=== PATIENT | female | born 1990 | race Two or more races ===

== ENCOUNTER 2019-03-30 11:17 | Emergency (ER) | payer OTHER ==
[2019-03-30 11:26] VITALS: BP 110/50
[2019-03-30] MEDS ORDERED: HYOSCYAMINE 0.125 MG TAB.RAPDIS PO ONE (11:30)
[2019-03-30] MEDS ORDERED: PROCHLORPERAZINE 10 MG/2 ML VIAL. IV ONE (11:30)
[2019-03-30] MEDS ORDERED: KETOROLAC 30 MG/ML VIAL. IV ONE (11:30)
--- NOTE | 2019-03-30 11:49 | PHYS DOC ---
Past History Past Medical History: No Pertinent History Past Surgical History: Appendectomy, Tonsillectomy Smoking: Non-smoker Alcohol Use: None Drug Use: None Adult General Chief Complaint Chief Complaint: MULTIPLE COMPLAINTS HPI HPI Patient is a 28-year-old female with chest, back, and abdominal pain for the past week to 2 weeks. She has been throwing up. Diarrhea as well. No recent travel or trauma. 5 days ago she had a fever of 102. She has taken no medicine for any of these complaints. She has not seen a primary care physician. No blood in the emesis. She reports black stools. No weakness. No PE risk factors. Nothing makes the chest discomfort worse. No worsening with exertion. No radiation.[] Review of Systems Review of Systems Constitutional: Denies fever or chills [] Eyes: Denies change in visual acuity, redness, or eye pain [] HENT: Denies nasal congestion or sore throat [] Respiratory: Denies cough or shortness of breath [] Cardiovascular: No additional information not addressed in HPI [] GI: Denies abdominal pain, nausea, vomiting, bloody stools or diarrhea [] : Denies dysuria or hematuria [] Musculoskeletal: Denies back pain or joint pain [] Integument: Denies rash or skin lesions [] Neurologic: Denies headache, focal weakness or sensory changes [] Endocrine: Denies polyuria or polydipsia [] All other systems were reviewed and found to be within normal limits, except as documented in this note. Physical Exam Physical Exam Constitutional: Well developed, well nourished, no acute distress, non-toxic appearance. [] HENT: Normocephalic, atraumatic, bilateral external ears normal, oropharynx moist, no oral exudates, nose normal. [] Eyes: PERRLA, EOMI, conjunctiva normal, no discharge. [] Neck: Normal range of motion, no tenderness, supple, no stridor. [] Cardiovascular:Heart rate regular rhythm, no murmur [] Lungs & Thorax: Bilateral breath sounds clear to auscultation [] Abdomen: Bowel sounds normal, soft, no tenderness, no masses, no pulsatile masses. [] Skin: Warm, dry, no erythema, no rash. [] Back: No tenderness, no CVA tenderness. [] Extremities: No tenderness, no cyanosis, no clubbing, ROM intact, no edema. [] Neurologic: Alert and oriented X 3, normal motor function, normal sensory function, no focal deficits noted. [] Psychologic: Affect normal, judgement normal, mood normal. [] Current Patient Data Vital Signs Vital Signs Date Time Temp Pulse Resp B/P (MAP) Pulse Ox O2 Delivery O2 Flow Rate FiO2 03/30/19 11:26 98.1 72 18 97 Room Air EKG EKG EKG shows a sinus rhythm at 74 bpm, PVCs are present. Normal axis, QTC 460 ms, no ST elevations. Interpreted by me at 1133.[] Radiology/Procedures Radiology/Procedures PROCEDURE: ACUTE ABDOMEN SERIES Acute abdominal series to include a PA chest radiograph 03/30/2019 Clinical History: Difficulty breathing with nausea and vomiting. Periumbilical pain. A PA digital radiograph of the chest was obtained. Supine and erect AP digital radiographs of the abdomen/pelvis were obtained. No previous studies are available for comparison. The cardiac and mediastinal silhouettes are within normal limits in size and configuration. No pulmonary infiltrate is seen. No pleural effusion or pneumothorax is noted. Surgical clips are seen involving the right mid abdomen. An IUD overlies the pelvis. The abdominal bowel gas pattern is nonobstructive. There is no evidence of free air. An 1.3 cm calcific density overlies the right upper quadrant of the abdomen which may represent an calcified gallstone. The osseous structures are grossly intact. Impression: 1. Question cholelithiasis. 2. Nonobstructive bowel gas pattern.[] Course & Med Decision Making Course & Med Decision Making Pertinent Labs and Imaging studies reviewed. (See chart for details) ED course: Patient arrived, was placed in bed, and tolerated exam well. She was transported to and from radiology with out any complications. She was given IV fluids, antiemetics, and medicine for pain. She was oral intake tolerant while in the emergency department. Findings and plan were discussed with the patient voiced understanding. All questions were answered. She was discharged in improved condition. Medical decision making: There is no evidence of oral intake intolerance, no pneumonia, no pneumothorax, no evidence of pulmonary embolism, no evidence of acute coronary syndrome, nor congestive heart failure. No evidence of GI bleed, nor significant electrolyte abnormality. No evidence of or ectopic [] Dragon Disclaimer Dragon Disclaimer This electronic medical record was generated, in whole or in part, using a voice recognition dictation system. Departure Departure: Impression: Primary Impression: Chest pain Additional Impression: Nausea vomiting and diarrhea Disposition: 01 HOME, SELF-CARE Condition: IMPROVED Referrals: PCP,JOHN (PCP) Patient Instructions: Chest Pain (Nonspecific), Diet for Diarrhea, Adult, Nausea and Vomiting Additional Instructions: Drink plenty of fluids, frequent small sips. No fatty foods, no milk, and no pepper for the next 48 hours. For the next 48 hours eat a diet rich in carbohydrates with foods such as bananas, rice, applesauce, and toast. Follow-up with your regular doctor in 2 days. If you do not have a regular doctor list of local clinics will be provided for you. Return to the ER if unable to tolerate liquids, blood in your stool or emesis, or any other concerns. Scripts Ondansetron Hcl (ZOFRAN) 4 Mg Tablet 1 TAB PO Q6HRS for nausea or vomiting, #20 TAB Prov: JAGDEEP SANTILLAN DO 03/30/19 Meloxicam (MELOXICAM) 7.5 Mg Tablet 7.5 MG PO DAILY for PAIN, #20 TAB Prov: JAGDEEP SANTILLAN DO 03/30/19 Hyoscyamine Sulfate (LEVSIN) 0.125 Mg Tablet 0.125 MG PO QID for abdominal pain/cramping, #30 TAB Prov: JAGDEEP SANTILLAN DO 03/30/19 Problem Qualifiers Primary Impression: Chest pain Chest pain type: unspecified Qualified Codes: R07.9 - Chest pain, unspecified JAGDEEP SANTILLAN DO Mar 30, 2019 11:48
[2019-03-30 12:10] LABS: BASO % 1 % (0-3); EOS % 1 % (0-3); HEMOGLOBIN 11.4 g/dL (12.0-15.5); LYMPH # 1.5 x10^3/uL (1.0-4.8); LYMPH % 23 % (24-48); MEAN CORPUSCULAR HEMOGLOBIN 26 pg (25-35); MEAN CORPUSCULAR HGB CONC 33 g/dL (31-37); MEAN CORPUSCULAR VOLUME 81 fL (79-100); MONO # 0.4 x10^3/uL (0.0-1.1); MONO % 6 % (0-9); NEUT # 4.5 x10^3uL (1.8-7.7); NEUT % 70 % (31-73); PLATELET COUNT 378 x10^3/uL (140-400); RED BLOOD COUNT 4.35 x10^6/uL (3.50-5.40); RED CELL DISTRIBUTION WIDTH 14.2 % (11.5-14.5); WHITE BLOOD COUNT 6.4 x10^3/uL (4.0-11.0)
[2019-03-30 12:17] LABS: ALBUMIN 3.8 g/dL (3.4-5.0); ALBUMIN/GLOBULIN RATIO 1.1 (1.0-1.7); CALCIUM 9.2 mg/dL (8.5-10.1); CREATININE 0.6 mg/dL (0.6-1.0); POTASSIUM 3.6 mmol/L (3.5-5.1); TOTAL BILIRUBIN 0.5 mg/dL (0.2-1.0); TOTAL PROTEIN 7.4 g/dL (6.4-8.2)
[2019-03-30 12:49] LABS: BACTERIA,URINE MOD /HPF (0-FEW); BILIRUBIN,URINE NEG (NEG); CLARITY,URINE HAZY; COLOR,URINE AMBER; GLUCOSE,URINE NEG (NEG); NITRITE,URINE NEG (NEG); SQUAMOUS EPITHELIAL CELL,UR FEW /LPF; UROBILINOGEN,URINE 4 mg/dL (0.2 mg/dL)
--- NOTE | 2019-03-30 12:51 | RAD ---
Acute abdominal series to include a PA chest radiograph 03/30/2019 Clinical History: Difficulty breathing with nausea and vomiting. Periumbilical pain. A PA digital radiograph of the chest was obtained. Supine and erect AP digital radiographs of the abdomen/pelvis were obtained. No previous studies are available for comparison. The cardiac and mediastinal silhouettes are within normal limits in size and configuration. No pulmonary infiltrate is seen. No pleural effusion or pneumothorax is noted. Surgical clips are seen involving the right mid abdomen. An IUD overlies the pelvis. The abdominal bowel gas pattern is nonobstructive. There is no evidence of free air. An 1.3 cm calcific density overlies the right upper quadrant of the abdomen which may represent an calcified gallstone. The osseous structures are grossly intact. Impression: 1. Question cholelithiasis. 2. Nonobstructive bowel gas pattern. Electronically signed by: Husam Angel MD (03/30/2019 12:48 PM) [facility]
[2019-03-30 13:24] LABS: U PREG PATIENT NEGATIVE (NEG)
[2019-03-30] MEDS ORDERED: ONDA4TAB7 PO (13:33)
[2019-03-30] MEDS ORDERED: HYOS0.1264 PO (13:33)
[2019-03-30] MEDS ORDERED: MELO7.5T29 PO (13:33)
--- NOTE | 2019-03-30 13:43 | EKG ---
[address] [address] Test Date: 2019-03-30 Test Time: 11:30:10 Pat Name: LYRIC ARIAS Department: Room: Gender: F Em Physician: DAHIANA : 1990 Requested By: JAGDEEP SANTILLAN Order Number: [id number] Reading MD: Sean Meza MD Measurements Intervals [place] Rate: 74 P: 51 UT: 176 QRS: 77 QRSD: 94 T: -34 QT: 414 QTc: 460 Interpretive Statements SINUS RHYTHM VENTRICULAR PREMATURE COMPLEX(ES) Electronically Signed On 04-09-2019 9:45:42 CDT by Sean Meza MD
== END 2019-03-30 13:36 | disposition home or self-care (01) ==
LOC: ER 11:17
DX: R07.9 Chest pain, unspecified (principal); R10.33 Periumbilical pain; R11.2 Nausea with vomiting, unspecified; R19.7 Diarrhea, unspecified; Z90.49 Acquired absence of other specified parts of digestive tract
CPT/HCPCS: 36415; 74022; 80053; 81001; 81025; 83690; 84484; 85025; 85379; 87086; 93005; 96374; 96375; 99285; J0780; J1885

== ENCOUNTER 2020-06-28 14:07 | Emergency (ER) | payer OTHER ==
[~2020-06-28] VITALS: Ht 167.6 cm; Wt 86.4 kg
[~2020-06-28 14:07] MED LIST: HYOS0.1264 PO; MELO7.5T29 PO; ONDA4TAB7 PO
[2020-06-28 15:14] LABS: BACTERIA,URINE FEW /HPF (0-FEW); BILIRUBIN,URINE NEG (NEG); CLARITY,URINE CLEAR; COLOR,URINE YELLOW; GLUCOSE,URINE NEG (NEG); NITRITE,URINE NEG (NEG); RBC,URINE >40 /HPF (0-2); SQUAMOUS EPITHELIAL CELL,UR OCC /LPF; UROBILINOGEN,URINE 0.2 mg/dL (0.2 mg/dL); WBC,URINE OCC /HPF (0-4)
[2020-06-28 16:38] VITALS: BP 104/64
--- NOTE | 2020-06-28 16:49 | PHYS DOC ---
Past History Past Medical History: Anxiety Past Surgical History: Appendectomy, Tonsillectomy Additional Past Surgical Histo: appendectomyx2 Smoking: Non-smoker Alcohol Use: None Drug Use: None Adult General Chief Complaint Chief Complaint: VAGINAL BLEEDING HPI HPI Patient is a 29-year-old female reports vaginal bleeding after being 6 weeks . Patient states this is her second and she has 1 living child at home. Patient states that she took 4 home test last week and they were all positive. Patient states that she started noticing some light bleeding last week and eventually turned to normal menstrual type bleeding this week. Patient states that she is having cramping and vaginal bleeding consistent with her normal menstruation. Patient denies any nausea, vomiting, diarrhea, chest pains, shortness of breath. Patient denies any loss of bowel or bladder. Patient denies any urinary infection type signs and symptoms. Patient denies any STI concerns. Patient states she has no known drug allergies, had an appendectomy in 2008 and then again in 2011 as she was told she had 2 appendixes. Patient states she had a TNA in 2011. Patient takes Lexapro 25 mg for anxiety. Patient denies any other physical elements or physical complaints. Review of Systems Review of Systems 14 body systems of review of systems have been reviewed. See HPI for pertinent positives and negative responses, otherwise all other systems are negative, nonpertinent or noncontributory. Allergies Allergies Allergies Coded Allergies Type Severity Reaction Last Updated Verified No Known Drug Allergies 03/30/19 No Physical Exam Physical Exam Constitutional: Well developed, well nourished, no acute distress, non-toxic appearance. HENT: Normocephalic, atraumatic, bilateral external ears normal, oropharynx moist, no oral exudates, nose normal. Eyes: PERRLA, EOMI, conjunctiva normal, no discharge. Neck: Normal range of motion, no tenderness, supple, no stridor. Cardiovascular:Heart rate regular rhythm, no murmur Lungs & Thorax: Bilateral breath sounds clear to auscultation Abdomen: Bowel sounds normal, soft, no tenderness, no masses, no pulsatile masses. Skin: Warm, dry, no erythema, no rash. Back: No tenderness, no CVA tenderness. Extremities: No tenderness, no cyanosis, no clubbing, ROM intact, no edema. Neurologic: Alert and oriented X 3, normal motor function, normal sensory function, no focal deficits noted. Psychologic: Affect normal, judgement normal, mood normal. Current Patient Data Vital Signs Vital Signs Date Time Temp Pulse Resp B/P (MAP) Pulse Ox O2 Delivery O2 Flow Rate FiO2 06/28/20 16:40 97.8 06/28/20 16:38 70 16 104/64 (77) 98 06/28/20 14:30 Room Air Lab Results Laboratory Tests Test 06/28/20 14:18 06/28/20 14:30 06/28/20 15:05 Urine Collection Type Unknown Urine Color Yellow Urine Clarity Clear Urine pH 6.5 Urine Specific [place] 1.025 Urine Protein Neg (NEG-TRACE) Urine Glucose (UA) Neg mg/dL (NEG) Urine Ketones (Stick) Neg mg/dL (NEG) Urine Blood Large (NEG) Urine Nitrite Neg (NEG) Urine Bilirubin Neg (NEG) Urine Urobilinogen Dipstick 0.2 mg/dL (0.2 mg/dL) Urine Leukocyte Esterase Neg (NEG) Urine RBC >40 /HPF (0-2) Urine WBC Occ /HPF (0-4) Urine Squamous Epithelial Cells Occ /LPF Urine Bacteria Few /HPF (0-FEW) POC Urine HCG, Qualitative hcg negative (Negative) Maternal Serum HCG Beta Subunit < 1 mIU/mL (0-6) EKG EKG [] Radiology/Procedures Radiology/Procedures [] Heart Score Risk Factors: Risk Factors: DM, Current or recent (<one month) smoker, HTN, HLP, family history of CAD, obesity. Risk Scores: Risk Factors: DM, Current or recent (<one month) smoker, HTN, HLP, family history of CAD, obesity. Course & Med Decision Making Course & Med Decision Making Pertinent Labs and Imaging studies reviewed. (See chart for details) 29-year-old female complaining of being 6 weeks with vaginal bleeding. Patient's physical exam was unremarkable. Patient's urine hCG was negative. Patient's LMP was 5 weeks ago patient did states she received a RhoGam injection during her last as she has a negative type blood. Beta hCG was drawn in the ER along with a RhoGam study. Patient's beta-hCG was less than 1. Discussed case with ED attending Dr. Oropeza RhoGam not needed. Discussed findings with patient. Patient believes that she may have just had a chemical as she may have waited too long to read her test and did not follow directions accurately. Patient in verbal understanding of discharge home instructions return to ER precautions and concerns, had no further questions and discharged home. Impression: #1 feared condition not exhibited #2 normal menstrual period Dragon Disclaimer Dragon Disclaimer This electronic medical record was generated, in whole or in part, using a voice recognition dictation system. Departure Departure: Impression: Primary Impression: Feared condition not demonstrated Additional Impression: Normal menstrual period Disposition: 01 DC HOME SELF CARE/HOMELESS Condition: GOOD Referrals: COLE ZEE MD (PCP) Additional Instructions: After an extensive study in the emergency department, you are not . You do not need a RhoGam shot today. Please see your doctor soon. 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 Please return to the emergency department for worsening symptoms or other concerns. EMERGENCY DEPARTMENT GENERAL DISCHARGE INSTRUCTIONS Thank you for coming to [facility] (ED) today and trusting us with you care. We trust that you had a positivie experience in our Emergency Department. If you wish to speak to the department management, you may call the director at [phone]. YOUR FOLLOW UP INSTRUCTIONS ARE FOLLOWS: 1. Do you have a private Doctor? If you do not have a private doctor, please ask for a resource list of physicians or clinics that may be able to assist you with follow up care. 2. The Emergency Physician has interpreted your x-rays. The X-Ray specialist will also review them. If there is a change in the findings, you will be notified in 48 hours when at all possible. 3. A lab test or culture has been done, your results will be reviewed and you will be notified if you need a change in treatment. ADDITIONAL INSTRUCTIONS AND INFORMATION: 1. Your care today has been supervised by a physician who is specially trained in emergency care. Many problems require more than one evaluation for a complete diagnosis and treatment. We recommend that you schedule your follow up appointment as recommended to ensure complete treatment of you illness or injury. If you are unable to obtain follow up care and continue to have a problem, or if your condition worsens, we recommend that you return to the ED. 2. We are not able to safely determine your condition over the phone nor are we able to give sound medical advice over the phone. For these safety reasons, if you call for medical advice we will ask you to come to the ED for further evaluation. 3. If you have any questions regarding these discharge instructions please call the ED at [phone]. SAFETY INFORMATION: In the interest of safety, wellness, and injury prevention; we encourage you to wear your sealbelt, if you smoke; quite smoking, and we encourage family to use a protective helmet for bicycling and other sporting events that present an increased risk for head injury. IF YOUR SYMPTOMS WORSEN OR NEW SYMPTOMS DEVELOP, OR YOU HAVE CONCERNS ABOUT YOUR CONDITION; OR IF YOUR CONDITION WORSENS WHILE YOU ARE WAITING FOR YOUR FOLLOW UP APPOINTMENT; EITHER CONTACT YOUR PRIMARY CARE DOCTOR, THE PHYSICIAN WHOSE NAME AND NUMBER YOU WERE GIVEN, OR RETURN TO THE ED IMMEDIATELY. Problem Qualifiers ANTONI HOOVER APRN Jun 28, 2020 16:49
== END 2020-06-28 16:54 | disposition home or self-care (01) ==
LOC: ER 14:07
DX: N93.9 Abnormal uterine and vaginal bleeding, unspecified (principal); Z71.1 Person with feared health complaint in whom no diagnosis is made; F41.9 Anxiety disorder, unspecified
CPT/HCPCS: 36415; 81001; 81025; 84702; 86850; 86900; 86901; 99283

== ENCOUNTER 2021-03-22 22:27 | Emergency (ER) | payer OTHER ==
[~2021-03-22] VITALS: Ht 167.6 cm; Wt 100.0 kg
--- NOTE | 2021-03-22 23:32 | PHYS DOC ---
Past History Past Medical History: Anxiety Past Surgical History: No Surgical History Additional Past Surgical Histo: appendectomy Smoking: Non-smoker Alcohol Use: None Drug Use: None General Adult EDM: Chief Complaint: EYE PROBLEMS HPI: HPI: ".. I think I got pink eye.. ". " I am .. " and already on Augmentin... " Patient is a 30 year old female who presents with above hx and complaints pinkeye. Patient recently started on Augmentin for sinus infection by her primary care and OB. Patient complaining that right eye seems to be draining more. There is mild injection of the conjunctiva right eye. Vision lashes normal. No clouding of the cornea. No cell or flare. Limited exam of fundi but was basically benign. Extraocular muscles intact. No adenopathy at the canthus. Small amount of increased tearing in right eye.. No visual changes. On physical acuity testing she was 2060 in right eye and 20/25 in left eye. Patient states she has had no problems with current . No history of hypertension or concerns for eclampsia. Patient does have a history of anxiety. Patient has been taking vitamins. Patient has been compliant with her Augmentin antibiotic. Patient follows with Dr. Zee. Patient has completed Moderna vaccination.. No recent travel outside [facility]. No specific ill contacts. No history immunosuppression. Review of Systems: Review of Systems: Constitutional: Denies fever or chills Eyes: Denies change in visual acuity. Complains of increased drainage right eye and mild conjunctivitis. HENT: Complains of nasal congestion . Respiratory: Denies cough or shortness of breath Cardiovascular: Denies chest pain or edema GI: Denies abdominal pain, nausea, vomiting, bloody stools or diarrhea. Gravid : Denies dysuria Musculoskeletal: Denies back pain or joint pain Integument: Denies rash Neurologic: Denies headache, focal weakness or sensory changes Endocrine: Denies polyuria or polydipsia Lymphatic: Denies swollen glands Psychiatric: Denies depression or anxiety Family History: Family History: Noncontributory presentation Current Medications: Current Meds: See nursing for home meds Allergies: Allergies: Allergies Coded Allergies Type Severity Reaction Last Updated Verified No Known Drug Allergies 03/30/19 No Physical Exam: PE: Constitutional: Well developed, well nourished, no acute distress, non-toxic appearance. [] HENT: Normocephalic, atraumatic, bilateral external ears normal, oropharynx moist, no oral exudates, nose swollen turbinates and clear rhinorrhea Eyes: PERRLA, EOMI, conjunctiva normal left eye, no discharge left eye. Set findings in right eye as per HPI Neck: Normal range of motion, no tenderness, supple, no stridor. [] Cardiovascular:Heart rate regular rhythm, no murmur [] Lungs & Thorax: Bilateral breath sounds clear to auscultation [] Abdomen: Bowel sounds normal, soft, no tenderness, no masses, no pulsatile masses. Gravid. Surgery scars Skin: Warm, dry, no erythema, no rash. [] Back: No tenderness, no CVA tenderness. [] Extremities: No tenderness, no cyanosis, no clubbing, ROM intact, no edema. [] Neurologic: Alert and oriented X 3, normal motor function, normal sensory function, no focal deficits noted. DTRs +2 patella and brachial. Psychologic: Affect anxious, judgement normal, mood normal. [] EKG: EKG: [] Radiology/Procedures: Radiology/Procedures: [] Heart Score: C/O Chest Pain: N/A Risk Factors: Risk Factors: DM, Current or recent (<one month) smoker, HTN, HLP, family history of CAD, obesity. Risk Scores: Score 0 - 3: 2.5% MACE over next 6 weeks - Discharge Home Score 4 - 6: 20.3% MACE over next 6 weeks - Admit for Clinical Observation Score 7 - 10: 72.7% MACE over next 6 weeks - Early Invasive Strategies Course & Med Decision Making: Course & Med Decision Making Pertinent Labs and Imaging studies reviewed. (See chart for details) Patient do frequent handwashing. Patient follow-up primary care. Patient continue her Augmentin this is more than cover any bacterial conjunctivitis. Patient use erythromycin ointment very small amount 4 times a day to right eye. Patient condition is most likely viral.. Follow-up primary care. Consider follow-up with ophthalmology. Patient return if any concerns. Patient not use eye make-up. 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 Impression: 1. Right conjunctivitis-suspect viral 2. Gravid 2 term 1 [] Jan Disclaimer: Jan Disclaimer: This electronic medical record was generated, in whole or in part, using a voice recognition dictation system. Departure Departure: Referrals: COLE ZEE MD (PCP) Jan Disclaimer This chart was dictated in whole or in part using Voice Recognition software in a busy, high-work load, and often noisy Emergency Department environment. It may contain unintended and wholly unrecognized errors or omissions. Dragon Disclaimer This chart was dictated in whole or in part using Voice Recognition software in a busy, high-work load, and often noisy Emergency Department environment. It may contain unintended and wholly unrecognized errors or omissions. CRISTIAN ROBERSON MD Mar 22, 2021 23:32
[2021-03-23 00:25] VITALS: BP 120/68
[2021-03-23] MEDS: ERYTHROMYCIN 0.5% OPHTH OINTMENT 1GM TUBE. OD ONE (00:26)
== END 2021-03-23 00:28 | disposition home or self-care (01) ==
LOC: ER 22:27
DX: O26.899 Other specified pregnancy related conditions, unspecified trimester (principal); H10.9 Unspecified conjunctivitis; Z3A.00 Weeks of gestation of pregnancy not specified
CPT/HCPCS: 99283